=== PATIENT | male | born 1975 | race Hispanic/Latino ===

== ENCOUNTER 2018-02-13 19:38 | Inpatient (IN) | payer MEDICARE ==
[~2018-02-13] VITALS: Ht 167.6 cm; Wt 69.9 kg
[2018-02-13 20:16] LABS: BASOPHILS % (AUTO) 1.2 % (0.0-5.0); EOSINOPHILS % (AUTO) 0.3 % (0.0-8.0); HEMATOCRIT 44.4 % (42-54); LYMPHOCYTES % (AUTO) 8.8 % (21.0-51.0); MEAN CORPUSCULAR HGB CONC 33.3 g/dL (32.0-36.0); MEAN CORPUSCULAR VOLUME 96.2 fL (79-99); MONOCYTES % (AUTO) 5.2 % (3.0-13.0); NEUTROPHILS % (AUTO) 84.5 % (40.0-77.0); PLATELET COUNT (AUTO) 181 K/uL (130-400); RED BLOOD CELL COUNT(AUTO) 4.61 MIL/uL (4.50-6.20); RED CELL DISTRIBUTION WIDTH 14.4 % (11.0-15.5); WHITE BLOOD COUNT (AUTO) 10.7 K/uL (4.8-10.8)
[2018-02-13 20:18] LABS: APPEARANCE,URINE CLOUDY (CLEAR); BILIRUBIN,URINE SMALL (NEGATIVE); COLOR,URINE YELLOW (YELLOW); GLUCOSE, URINE (UA) NEGATIVE (NEGATIVE); KETONES,URINE 40 mg/dL (NEGATIVE); LEUKOCYTE ESTERASE ,URINE LARGE (NEGATIVE); NITRATE,URINE NEGATIVE (NEGATIVE); OCCULT BLOOD,URINE MODERATE (NEGATIVE); PROTEIN,URINE >=300 (NEGATIVE); UROBILINOGEN,URINE 0.2 mg/dL (0.2-1.0)
[2018-02-13] MEDS ORDERED: KETOROLAC TROMETHAMINE 15MG/ML ONE (20:20)
[2018-02-13 20:24] LABS: BACTERIA,URINE Many /HPF (None Seen); SQUAMOUS EPITHELIAL CELL,UR None Seen /HPF (0-2); WBC,URINE >100 /HPF (0-1)
[2018-02-13 20:27] LABS: CREATININE 1.7 mg/dL (0.5-1.5); POTASSIUM 3.1 mmol/L (3.5-5.1)
[2018-02-13 20:32] LABS: BILIRUBIN,TOTAL 0.8 mg/dL (0.2-1.0); TOTAL PROTEIN, SERUM 6.5 g/dL (6.0-8.3)
[2018-02-13] MEDS ORDERED: CEPHALEXIN 500 MG CAPSULE ONE (21:23)
[2018-02-14] VITALS (7 sets, daily range): BP systolic 118–146; BP diastolic 76–90
[2018-02-14] MEDS: LEVOFLOXACIN 500 MG/D5W 100 ML 100 ML IV SCH
[2018-02-14] MEDS ORDERED: ACETAMINOPHEN 325 MG TAB PO PRN
[2018-02-14] MEDS ORDERED: ONDANSETRON HCL 4 MG/2 ML VIAL IV PRN
[2018-02-14] MEDS ORDERED: SODIUM CHLORIDE 0.9% 1000ML 1,000 ML IV ONE (02:08)
[2018-02-14] MEDS ORDERED: LEVOFLOXACIN 500 MG/D5W 100 ML 100 ML ONE (02:08)
[2018-02-14] MEDS ORDERED: PHARMACY COMMUNICATION MISC SCH (05:45)
[2018-02-14] MEDS ORDERED: PNEUMOCOCCAL VACCINE POLYVALENT 0.5 ML/VIAL [PPV] IM SCH (06:00)
[2018-02-14 06:01] LABS: BASOPHILS % (AUTO) 0.9 % (0.0-5.0); EOSINOPHILS % (AUTO) 1.1 % (0.0-8.0); HEMATOCRIT 51.8 % (42-54); LYMPHOCYTES % (AUTO) 12.9 % (21.0-51.0); MEAN CORPUSCULAR HEMOGLOBIN 31.2 pg (27.0-33.0); MEAN CORPUSCULAR HGB CONC 32.3 g/dL (32.0-36.0); MEAN CORPUSCULAR VOLUME 96.4 fL (79-99); MONOCYTES % (AUTO) 7.8 % (3.0-13.0); NEUTROPHILS % (AUTO) 77.3 % (40.0-77.0); NUCLEATED RED BLOOD CELLS 0.1 % (0.0-0.19); PLATELET COUNT (AUTO) 182 K/uL (130-400); RED BLOOD CELL COUNT(AUTO) 5.38 MIL/uL (4.50-6.20); RED CELL DISTRIBUTION WIDTH 13.8 % (11.0-15.5); WHITE BLOOD COUNT (AUTO) 10.7 K/uL (4.8-10.8)
[2018-02-14 06:14] LABS: ALBUMIN 2.8 g/dL (3.5-5.0); CREATININE 1.7 mg/dL (0.5-1.5); CRP QUANTITATIVE 0.8 mg/L (0.00-9.0); POTASSIUM 3.8 mmol/L (3.5-5.1); TOTAL PROTEIN, SERUM 6.2 g/dL (6.0-8.3)
[2018-02-14] MEDS: CEPHALEXIN 500 MG CAPSULE PO SCH ×3 (06:19→15:12)
[2018-02-14] MEDS: ENOXAPARIN SODIUM 30 MG/0.3 ML SQ SCH (09:00)
[2018-02-14] MEDS: FAMOTIDINE 20MG TAB 20 MG TAB PO SCH ×2 (09:31→20:30)
[2018-02-14] MEDS: MORPHINE SULFATE 2 MG/ML 1ML SYG IV PRN ×2 (09:37→20:31)
[2018-02-14] MEDS: SODIUM CHLORIDE 0.9% 1000ML 1,000 ML IV SCH (09:38)
[2018-02-15] MEDS: LEVOFLOXACIN 500 MG/D5W 100 ML 100 ML IV SCH (00:22)
[2018-02-15] MEDS: CEPHALEXIN 500 MG CAPSULE PO SCH ×3 (00:22→18:09)
[2018-02-15 01:29] LABS: APPEARANCE,URINE Cloudy (CLEAR); BILIRUBIN,URINE Negative (NEGATIVE); COLOR,URINE Yellow (YELLOW); GLUCOSE, URINE (UA) Negative (NEGATIVE); KETONES,URINE Negative (NEGATIVE); LEUKOCYTE ESTERASE ,URINE Large (NEGATIVE); NITRATE,URINE Negative (NEGATIVE); OCCULT BLOOD,URINE Moderate (NEGATIVE); PH,URINE 6.5 (5.0-8.0); PROTEIN,URINE POS 2+ (NEGATIVE); UROBILINOGEN,URINE 0.2 mg/dL (0.2-1.0)
[2018-02-15 01:43] LABS: BACTERIA,URINE Rare /HPF (None Seen); WBC,URINE 51-100 /HPF (0-1)
[2018-02-15 01:44] LABS: SQUAMOUS EPITHELIAL CELL,UR Rare /HPF (0-2); YEAST,URINE BUDDING Moderate /HPF (None Seen)
[2018-02-15] MEDS: SODIUM CHLORIDE 0.9% 1000ML 1,000 ML IV SCH ×4 (01:52→22:59)
[2018-02-15] MEDS: MORPHINE SULFATE 2 MG/ML 1ML SYG IV PRN ×5 (01:52→22:55)
[2018-02-15 03:00] VITALS: BP 128/77
[2018-02-15 05:18] LABS: BASOPHILS % (AUTO) 1.5 % (0.0-5.0); HEMATOCRIT 50.5 % (42-54); LYMPHOCYTES % (AUTO) 16.4 % (21.0-51.0); MEAN CORPUSCULAR HEMOGLOBIN 32.2 pg (27.0-33.0); MEAN CORPUSCULAR HGB CONC 33.3 g/dL (32.0-36.0); MEAN CORPUSCULAR VOLUME 96.7 fL (79-99); MONOCYTES % (AUTO) 8.4 % (3.0-13.0); NEUTROPHILS % (AUTO) 71.7 % (40.0-77.0); PLATELET COUNT (AUTO) 193 K/uL (130-400); RED BLOOD CELL COUNT(AUTO) 5.22 MIL/uL (4.50-6.20); RED CELL DISTRIBUTION WIDTH 14.1 % (11.0-15.5); WHITE BLOOD COUNT (AUTO) 11.2 K/uL (4.8-10.8)
[2018-02-15 05:35] LABS: CREATININE 1.6 mg/dL (0.5-1.5); MAGNESIUM 1.6 mg/dL (1.80-2.40); PHOSPHORUS 3.2 mg/dL (2.5-4.9); POTASSIUM 3.4 mmol/L (3.5-5.1); URIC ACID 6.2 mg/dL (2.6-7.2)
[2018-02-15 08:00] VITALS: BP 116/74
[2018-02-15] MEDS: FAMOTIDINE 20MG TAB 20 MG TAB PO SCH ×2 (08:41→21:20)
[2018-02-15] MEDS: SODIUM BICARBONATE 650 MG TAB PO SCH ×2 (08:42→21:20)
[2018-02-15] MEDS: FOLIC ACID/VITAMIN B COMP W-C 1 MG CAPSULE PO SCH (08:42)
[2018-02-15] MEDS: ENOXAPARIN SODIUM 30 MG/0.3 ML SQ SCH (08:43)
[2018-02-15 12:00] VITALS: BP 123/81
[2018-02-15] MEDS ORDERED: FLUCONAZOLE 100 MG TAB PO SCH (12:45)
[2018-02-15 16:00] VITALS: BP 117/75
[2018-02-15 19:00] VITALS: BP 124/77
[2018-02-15 23:00] VITALS: BP 124/71
[2018-02-16] MEDS: CEPHALEXIN 500 MG CAPSULE PO SCH ×2 (00:50→08:09)
[2018-02-16] MEDS: LEVOFLOXACIN 500 MG/D5W 100 ML 100 ML IV SCH (00:50)
[2018-02-16 03:00] VITALS: BP 118/86
[2018-02-16 05:55] LABS: BASOPHILS % (AUTO) 0.9 % (0.0-5.0); EOSINOPHILS % (AUTO) 4.1 % (0.0-8.0); HEMATOCRIT 47.7 % (42-54); LYMPHOCYTES % (AUTO) 15.3 % (21.0-51.0); MEAN CORPUSCULAR HGB CONC 33.3 g/dL (32.0-36.0); MEAN CORPUSCULAR VOLUME 96.1 fL (79-99); MONOCYTES % (AUTO) 9.3 % (3.0-13.0); NEUTROPHILS % (AUTO) 70.4 % (40.0-77.0); PLATELET COUNT (AUTO) 151 K/uL (130-400); RED BLOOD CELL COUNT(AUTO) 4.97 MIL/uL (4.50-6.20); RED CELL DISTRIBUTION WIDTH 13.9 % (11.0-15.5); WHITE BLOOD COUNT (AUTO) 8.9 K/uL (4.8-10.8)
[2018-02-16 06:16] LABS: CREATININE 1.6 mg/dL (0.5-1.5); POTASSIUM 3.5 mmol/L (3.5-5.1)
[2018-02-16] MEDS: SODIUM CHLORIDE 0.9% 1000ML 1,000 ML IV SCH (06:17)
[2018-02-16] MEDS: SODIUM BICARBONATE 650 MG TAB PO SCH (08:09)
[2018-02-16] MEDS: FOLIC ACID/VITAMIN B COMP W-C 1 MG CAPSULE PO SCH (08:09)
[2018-02-16] MEDS: FAMOTIDINE 20MG TAB 20 MG TAB PO SCH (08:10)
[2018-02-16] MEDS: ENOXAPARIN SODIUM 30 MG/0.3 ML SQ SCH (08:11)
[2018-02-16] MEDS: MORPHINE SULFATE 2 MG/ML 1ML SYG IV PRN (08:23)
[2018-02-16 08:44] VITALS: BP 114/70
[2018-02-16] MEDS ORDERED: FLUCONAZOLE 100 MG TAB PO SCH (09:00)
[2018-02-16] MEDS ORDERED: CEPH500C2 PO (09:23)
[2018-02-16] MEDS ORDERED: FLUC100T8 PO (09:23)
[2018-02-16 12:00] VITALS: BP_SYST 116; BP_SYST 119; BP_DIAS 66; BP_DIAS 71
[2018-02-16] MEDS ORDERED: MAGNESIUM OXIDE 400 MG TABLET PO SCH (12:45)
== END 2018-02-16 16:30 | disposition home or self-care (01) | DRG 683 ==
LOC: EDH 19:38 → EDHIP 23:30 → OBSVTOIN 23:30 → 3BH 02-14 00:41
PROVIDERS: ADMIT Internal Medicine; ATTEND Internal Medicine
PROC: 3E02340 Introduction of Influenza Vaccine into Muscle, Percutaneous Approach (ICD-10-PCS; 2018-02-14)
PROC: 3E0234Z Introduction of Serum, Toxoid and Vaccine into Muscle, Percutaneous Approach (ICD-10-PCS; principal; 2018-02-16)
DX: N17.9 Acute kidney failure, unspecified (principal); E87.2 Acidosis; N39.0 Urinary tract infection, site not specified; N18.3 Chronic kidney disease, stage 3 (moderate); R53.81 Other malaise; N20.0 Calculus of kidney; Z87.442 Personal history of urinary calculi
CPT/HCPCS: 36415; 74176; 76770; 80048; 80053; 81001; 83605; 83735; 83970; 84100; 84550; 85025; 86140; 87040; 87088; J1650; J1885; J1956; J7030; Q2035

== ENCOUNTER 2018-04-04 12:53 | Inpatient (IN) | payer MEDICARE ==
[~2018-04-04] VITALS: Ht 167.6 cm; Wt 74.7 kg
[~2018-04-04 12:53] MED LIST: CEPH500C2 PO; FLUC100T8 PO
[2018-04-04 13:36] LABS: BILIRUBIN,URINE NEGATIVE (NEGATIVE); COLOR,URINE YELLOW (YELLOW); GLUCOSE, URINE (UA) NEGATIVE (NEGATIVE); KETONES,URINE NEGATIVE (NEGATIVE); LEUKOCYTE ESTERASE ,URINE LARGE (NEGATIVE); NITRATE,URINE NEGATIVE (NEGATIVE); OCCULT BLOOD,URINE LARGE (NEGATIVE); PH,URINE 6.5 (5.0-8.0); PROTEIN,URINE 100 (NEGATIVE); UROBILINOGEN,URINE 0.2 mg/dL (0.2-1.0)
[2018-04-04 14:02] LABS: APPEARANCE,URINE CLOUDY (CLEAR)
[2018-04-04 14:03] LABS: BACTERIA,URINE Few /HPF (None Seen); WBC,URINE 51-100 /HPF (0-1)
[2018-04-04 14:04] LABS: SQUAMOUS EPITHELIAL CELL,UR None Seen /HPF (0-2)
[2018-04-04 15:24] LABS: BASOPHILS % (AUTO) 0.8 % (0.0-5.0); EOSINOPHILS % (AUTO) 0.9 % (0.0-8.0); HEMATOCRIT 48.1 % (42-54); LYMPHOCYTES % (AUTO) 10.9 % (21.0-51.0); MEAN CORPUSCULAR HEMOGLOBIN 31.5 pg (27.0-33.0); MEAN CORPUSCULAR HGB CONC 32.7 g/dL (32.0-36.0); MEAN CORPUSCULAR VOLUME 96.3 fL (79-99); MONOCYTES % (AUTO) 6.5 % (3.0-13.0); NEUTROPHILS % (AUTO) 80.9 % (40.0-77.0); PLATELET COUNT (AUTO) 218 K/uL (130-400); RED BLOOD CELL COUNT(AUTO) 4.99 MIL/uL (4.50-6.20); RED CELL DISTRIBUTION WIDTH 14.7 % (11.0-15.5); WHITE BLOOD COUNT (AUTO) 12.5 K/uL (4.8-10.8)
[2018-04-04 15:59] LABS: CREATININE 1.8 mg/dL (0.5-1.5); POTASSIUM 3.8 mmol/L (3.5-5.1)
[2018-04-04] MEDS ORDERED: SODIUM CHLORIDE 0.9% 100 ML IV ONE (16:18)
[2018-04-04] MEDS ORDERED: CEFTRIAXONE SODIUM 1 GM ONE (16:18)
[2018-04-04] MEDS ORDERED: SODIUM CHLORIDE 0.9% 1000ML 1,000 ML IV ONE (16:54)
[2018-04-04] MEDS ORDERED: ZOSYN 3.375GM+NS 50ML 50 ML IV ONE (16:54)
[2018-04-04] MEDS ORDERED: SODIUM CHLORIDE 0.9% 50 ML IV ONE (16:55)
[2018-04-04 18:20] VITALS: BP 129/81
--- NOTE | 2018-04-04 18:40 | NUR ---
PATIENT AOX3, IN NO DISTRESS, OTHER THAN MILD LEFT FLANK PAIN. NS AT 50ML/HR. IV NO SIGNS OF INFILTRATION. NORMAL BREATHING EFFORT.
[2018-04-04] MEDS: SODIUM CHLORIDE 0.9% 1000ML 1,000 ML IV SCH (23:00)
[2018-04-04 23:15] VITALS: BP 108/71
[2018-04-04] MEDS ORDERED: ONDANSETRON HCL 4 MG/2 ML VIAL IVP PRN (23:15)
[2018-04-04] MEDS ORDERED: HYDRALAZINE HCL 20 MG/ML VIAL IM PRN (23:15)
[2018-04-04] MEDS ORDERED: MORPHINE SULFATE 2 MG/ML 1ML SYG IVP PRN (23:15)
[2018-04-04] MEDS ORDERED: ENOXAPARIN SODIUM 30 MG/0.3 ML SQ ONE (23:31)
[2018-04-04] MEDS ORDERED: KETOROLAC TROMETHAMINE 15MG/ML ONE (23:32)
[2018-04-05] MEDS: ZOSYN 3.375GM+NS 50ML 50 ML IV SCH ×3 (02:12→17:07)
[2018-04-05 03:50] VITALS: BP 103/60
[2018-04-05 05:33] LABS: HEMATOCRIT 46.1 % (42-54); MEAN CORPUSCULAR HEMOGLOBIN 32.2 pg (27.0-33.0); MEAN CORPUSCULAR HGB CONC 33.8 g/dL (32.0-36.0); MEAN CORPUSCULAR VOLUME 95.3 fL (79-99); PLATELET COUNT (AUTO) 240 K/uL (130-400); RED BLOOD CELL COUNT(AUTO) 4.84 MIL/uL (4.50-6.20); RED CELL DISTRIBUTION WIDTH 14.9 % (11.0-15.5); WHITE BLOOD COUNT (AUTO) 8.5 K/uL (4.8-10.8)
[2018-04-05 05:44] LABS: CREATININE 1.9 mg/dL (0.5-1.5); POTASSIUM 3.5 mmol/L (3.5-5.1)
[2018-04-05 08:00] VITALS: BP 114/66
[2018-04-05] MEDS: PANTOPRAZOLE 40 MG/VIAL IVP SCH (10:06)
[2018-04-05] MEDS: ENOXAPARIN SODIUM 30 MG/0.3 ML SQ SCH (10:06)
[2018-04-05] MEDS: KETOROLAC TROMETHAMINE 15MG/ML IV PRN ×3 (10:07→23:52)
[2018-04-05 12:00] VITALS: BP 107/60
[2018-04-05] MEDS ORDERED: PHARMACY COMMUNICATION MISC SCH (12:30)
[2018-04-05] MEDS ORDERED: ACETAMINOPHEN 325 MG TAB PO PRN (12:30)
[2018-04-05] MEDS ORDERED: HYDROCODONE/ACETAMINOPHEN 5/325 MG TAB PO PRN (12:30)
--- NOTE | 2018-04-05 14:46 | NUR ---
DCP CM met with pt discussed dc plans. Pt is independent prior to admission, lives at home with mother and son. Has a wheelchair, walker, and shower chair. Denies any other equiopments/services. Pt feels safe to go back home, still drives, mother and son able to assist with transportation and needs as necessary. DC plan to home once stable. CM to cont to follow up. Addendum: 04/05/18 at 1447 by DAVE TUTTLE LVN CM Amended: Links added.
[2018-04-05] MEDS: SODIUM CHLORIDE 0.9% 1000ML 1,000 ML IV SCH ×2 (15:05→21:51)
[2018-04-05 16:00] VITALS: BP 127/73
[2018-04-05 19:52] VITALS: BP 110/71
[2018-04-05 23:56] VITALS: BP 121/75
[2018-04-06] MEDS: ZOSYN 3.375GM+NS 50ML 50 ML IV SCH ×2 (01:34→08:52)
[2018-04-06 03:46] VITALS: BP 113/72
[2018-04-06] MEDS: KETOROLAC TROMETHAMINE 15MG/ML IV PRN (06:30)
[2018-04-06] MEDS: SODIUM CHLORIDE 0.9% 1000ML 1,000 ML IV SCH (06:31)
[2018-04-06 08:11] VITALS: BP 116/62
[2018-04-06] MEDS: ENOXAPARIN SODIUM 30 MG/0.3 ML SQ SCH (08:54)
[2018-04-06] MEDS: PANTOPRAZOLE 40 MG/VIAL IVP SCH (09:00)
[2018-04-07] MEDS ORDERED: PANTOPRAZOLE SODIUM 40 MG TABLET.DR PO SCH (07:30)
== END 2018-04-06 13:10 | disposition home or self-care (01) | DRG 690 ==
LOC: EDH 12:53 → OBSVTOIN 16:33 → EDHIP 16:33 → 3CH 18:31
PROVIDERS: ADMIT Internal Medicine; ATTEND Internal Medicine
DX: N13.6 Pyonephrosis (principal); N17.9 Acute kidney failure, unspecified; Z91.19 Patient's noncompliance with other medical treatment and regimen
CPT/HCPCS: 36415; 74176; 80048; 81001; 85025; 85027; 87088; C9113; G0378; J0696; J1650; J1885; J2405; J2543; J7030

== ENCOUNTER 2018-06-30 03:40 | Emergency (ER) | payer MEDICARE ==
[2018-06-30] MEDS ORDERED: PREDNISONE 20 MG TABLET ONE (04:18)
== END 2018-06-30 06:15 | disposition home or self-care (01) ==
LOC: EDH 03:40
DX: T63.441A Toxic effect of venom of bees, accidental (unintentional), initial encounter (principal); Z87.442 Personal history of urinary calculi; Z72.0 Tobacco use; Z88.8 Allergy status to other drugs, medicaments and biological substances; Z98.890 Other specified postprocedural states; Y92.89 Other specified places as the place of occurrence of the external cause

== ENCOUNTER 2018-10-17 17:46 | Inpatient (IN) | payer MEDICARE ==
[~2018-10-17] VITALS: Ht 167.6 cm; Wt 80.9 kg
[2018-10-17] MEDS ORDERED: KETOROLAC TROMETHAMINE 15MG/ML ONE (18:34)
[2018-10-17 18:48] LABS: APPEARANCE,URINE CLOUDY (CLEAR); BILIRUBIN,URINE NEGATIVE (NEGATIVE); COLOR,URINE YELLOW (YELLOW); GLUCOSE, URINE (UA) NEGATIVE (NEGATIVE); KETONES,URINE NEGATIVE (NEGATIVE); LEUKOCYTE ESTERASE ,URINE LARGE (NEGATIVE); NITRATE,URINE NEGATIVE (NEGATIVE); OCCULT BLOOD,URINE LARGE (NEGATIVE); PROTEIN,URINE >=300 mg/dL (NEGATIVE); UROBILINOGEN,URINE 0.2 mg/dL (0.2-1.0)
[2018-10-17 18:50] LABS: BASOPHILS % (AUTO) 0.8 % (0.0-5.0); EOSINOPHILS % (AUTO) 2.4 % (0.0-8.0); HEMATOCRIT 44.1 % (42-54); LYMPHOCYTES % (AUTO) 12.7 % (21.0-51.0); MEAN CORPUSCULAR HEMOGLOBIN 32.2 pg (27.0-33.0); MEAN CORPUSCULAR HGB CONC 33.3 g/dL (32.0-36.0); MEAN CORPUSCULAR VOLUME 96.6 fL (79-99); MONOCYTES % (AUTO) 9.9 % (3.0-13.0); NEUTROPHILS % (AUTO) 74.2 % (40.0-77.0); PLATELET COUNT (AUTO) 255 K/uL (130-400); RED BLOOD CELL COUNT(AUTO) 4.57 MIL/uL (4.50-6.20); RED CELL DISTRIBUTION WIDTH 14.8 % (11.0-15.5); WHITE BLOOD COUNT (AUTO) 12.6 K/uL (4.8-10.8)
[2018-10-17 18:54] LABS: BACTERIA,URINE Many /HPF (None Seen); RBC,URINE None Seen /HPF (0-1); SQUAMOUS EPITHELIAL CELL,UR None Seen /HPF (0-2); WBC,URINE Full Field /HPF (0-1)
[2018-10-17 19:00] LABS: AMPHET/METH SCREEN,URINE NEGATIVE (NEGATIVE); BARBITURATE SCREEN, URINE NEGATIVE (NEGATIVE); BENZODIAZEPINES SCREEN,URINE NEGATIVE (NEGATIVE); CANNABINOID SCREEN,URINE NEGATIVE (NEGATIVE); COCAINE SCREEN,URINE POSITIVE (NEGATIVE); OPIATE SCREEN,URINE NEGATIVE (NEGATIVE); PHENCYCLIDINE SCREEN,URINE NEGATIVE (NEGATIVE)
[2018-10-17 19:00] LABS: CREATININE 2.6 mg/dL (0.5-1.5); POTASSIUM 3.4 mmol/L (3.5-5.1)
[2018-10-17 19:06] LABS: ALBUMIN 2.9 g/dL (3.5-5.0); BILIRUBIN,TOTAL 0.3 mg/dL (0.2-1.0); TOTAL PROTEIN, SERUM 7.1 g/dL (6.0-8.3)
[2018-10-17] MEDS ORDERED: CEFTRIAXONE SODIUM 2 GM VIAL ONE (19:25)
[2018-10-17] MEDS ORDERED: SODIUM CHLORIDE 0.9% 50 ML IV ONE (19:25)
[2018-10-17] MEDS ORDERED: SODIUM CHLORIDE 0.9% 1000ML 1,000 ML IV ONE ×2 (19:36→21:19)
[2018-10-17] MEDS: SODIUM CHLORIDE 0.9% 1000ML 1,000 ML IV SCH (21:09)
[2018-10-17] MEDS ORDERED: ACETAMINOPHEN 325 MG TAB PO PRN ×2 (21:15)
[2018-10-17] MEDS ORDERED: ONDANSETRON HCL 4 MG/2 ML VIAL IV PRN (21:15)
[2018-10-17] MEDS: CEFTRIAXONE SODIUM 1 GM IV SCH (22:00)
--- NOTE | 2018-10-17 23:00 | NUR ---
Admission Assessment Received pt from ED per wheelchair with no family around, NS at 125cc/hr infusing well, routine admission assessment done, plan of care discuss so with all lab works & radiologic study done in Ed. Per pt claimed he is aware that he has multiple kidney stones since claimed he left a [place], drove 6 hours & came to the hospital since his family support is here in the [place]. Stated if he will need surgery he prefers to have it here. I made him aware that he is still pending to be seen by Dr. Winchester & most possibly will be needing some surgical intervention. Pt c/o at this time bilateral flank pain scale 9/10, to be medicated with Morphine.
[2018-10-17] MEDS: MORPHINE SULFATE 4 MG/1ML SYG IV PRN (23:10)
[2018-10-18 00:38] VITALS: BP 135/78
[2018-10-18] MEDS ORDERED: sulfameth PO (03:47)
[2018-10-18 04:01] VITALS: BP 101/60
[2018-10-18] MEDS: SODIUM CHLORIDE 0.9% 1000ML 1,000 ML IV SCH ×2 (05:18→13:20)
[2018-10-18 08:00] VITALS: BP 110/67
[2018-10-18] MEDS: MORPHINE SULFATE 4 MG/1ML SYG IV PRN (08:20)
[2018-10-18] MEDS ORDERED: FAMOTIDINE/PF 20 MG/2 ML VIAL IV SCH (09:00)
[2018-10-18] MEDS ORDERED: ENOXAPARIN SODIUM 30 MG/0.3 ML SQ SCH (09:00)
[2018-10-18 11:00] VITALS: BP 111/76
[2018-10-18] MEDS ORDERED: POTASSIUM CHLORIDE 20 MEQ ERTAB PO SCH (12:45)
[2018-10-18] MEDS: HYDROCODONE/ACETAMINOPHEN 5/325 MG TAB PO PRN ×2 (13:20→21:48)
[2018-10-18 16:00] VITALS: BP 112/75
--- NOTE | 2018-10-18 16:33 | NUR ---
UROLOGY CONSULT Called answering service for Dr. Winchester for consult. Pending for him to call back.
--- NOTE | 2018-10-18 18:27 | NUR ---
cm note resides at home with mother , pt is independent with ambulation and adls. no dme. states dc plan is back to home. states no dc needs. but did request info on provider services and transportation services , did provide medicaid trasnport info and #s, and also on provider services phone #s to call and request services. also discussed with pt importance of adherence to diet and med regimen as prescribed by md, and also abstaining from alcohol and drug use, due to illness, and available resources for alcohol and drug resources, pt denies any drugs or alcahol use.dc plan is back home with mother. Addendum: 10/18/18 at 1833 by QI LOCKE Amended: Links added.
[2018-10-18] MEDS ORDERED: AMLO5TAB9 PO (19:18)
[2018-10-18] MEDS ORDERED: TRAZ-185 PO (19:18)
[2018-10-18] MEDS ORDERED: LEVO500T89 PO (19:18)
[2018-10-18] MEDS ORDERED: LISI2.5T2 PO (19:18)
[2018-10-18] MEDS ORDERED: ACET1TAB25 PO (19:18)
[2018-10-18] MEDS ORDERED: CARV12.511 PO (19:18)
[2018-10-18] MEDS ORDERED: ESOM40CA54 PO (19:18)
--- NOTE | 2018-10-18 19:45 | NUR ---
PN Assessment Received pt alone, with NS at 100cc/hr infusing well, routine assessment done, plan of care discuss, confirmed awareness of surgical intervention in AM by Dr. Winchester, reminded NPO post MN & agreed to take a shower before bedtime. Pt stated that this is not the 1st time he will have a stent place on him.
[2018-10-18 20:00] VITALS: BP 133/77
--- NOTE | 2018-10-18 20:17 | NUR ---
PROCEDURE Obtained consent as ordered by Dr. Winchester and filed in chart.
--- NOTE | 2018-10-18 20:47 | NUR ---
HOME MEDICATIONS Entered home medications by error. Medications entered do not belong to this patient and have been discontinued from Medication Reconciliation Screen.
--- NOTE | 2018-10-18 20:57 | NUR ---
REVERSAL OF DNR REQUEST Patient stated he does not want to be DNR anymore. He stated this right before he signed consent for his urological procedure by Dr. Winchester tomorrow.
[2018-10-18] MEDS: CEFTRIAXONE SODIUM 1 GM IV SCH (21:38)
[2018-10-19] VITALS (25 sets, daily range): BP systolic 106–149; BP diastolic 64–99
[2018-10-19 04:15] LABS: BASOPHILS % (AUTO) 0.7 % (0.0-5.0); EOSINOPHILS % (AUTO) 7.8 % (0.0-8.0); HEMATOCRIT 43.9 % (42-54); LYMPHOCYTES % (AUTO) 12.2 % (21.0-51.0); MEAN CORPUSCULAR HEMOGLOBIN 31.5 pg (27.0-33.0); MEAN CORPUSCULAR HGB CONC 32.5 g/dL (32.0-36.0); MEAN CORPUSCULAR VOLUME 96.7 fL (79-99); MONOCYTES % (AUTO) 7.8 % (3.0-13.0); NEUTROPHILS % (AUTO) 71.5 % (40.0-77.0); PLATELET COUNT (AUTO) 247 K/uL (130-400); RED BLOOD CELL COUNT(AUTO) 4.54 MIL/uL (4.50-6.20); RED CELL DISTRIBUTION WIDTH 14.9 % (11.0-15.5); WHITE BLOOD COUNT (AUTO) 13.3 K/uL (4.8-10.8)
[2018-10-19 04:37] LABS: CREATININE 2.2 mg/dL (0.5-1.5); POTASSIUM 4.3 mmol/L (3.5-5.1)
[2018-10-19] MEDS: SODIUM CHLORIDE 0.9% 1000ML 1,000 ML IV SCH ×2 (06:33→17:37)
[2018-10-19] MEDS ORDERED: IOHEXOL-350 50ML VIAL IV ONE (08:27)
[2018-10-19] MEDS ORDERED: LIDOCAINE HCL MPF 1% 5ML VIAL ONE (08:46)
[2018-10-19] MEDS ORDERED: FENTANYL CITRATE PF 50 MCG/1 ML 2ML VIAL ONE ×2 (08:47→09:16)
[2018-10-19] MEDS ORDERED: PROPOFOL 10 MG/ML 20ML VIAL IV ONE (08:47)
[2018-10-19] MEDS ORDERED: ENOXAPARIN SODIUM 30 MG/0.3 ML SQ SCH (09:00)
[2018-10-19] MEDS: FAMOTIDINE/PF 20 MG/2 ML VIAL IV SCH (09:00)
[2018-10-19] MEDS ORDERED: EPHEDRINE SULFATE 50 MG/ML AMPULE ONE (09:12)
[2018-10-19] MEDS: MORPHINE SULFATE 2 MG/ML 1ML SYG IV PRN ×2 (17:37→22:34)
--- NOTE | 2018-10-19 20:04 | NUR ---
FEVER Vinayak DIAZ notified of temp 101.8.
[2018-10-19] MEDS ORDERED: PHARMACY COMMUNICATION MISC SCH (22:00)
[2018-10-19] MEDS: CEFTRIAXONE SODIUM 1 GM IV SCH (22:28)
[2018-10-19] MEDS ORDERED: SULF1TAB3 PO (22:30)
[2018-10-20] VITALS (7 sets, daily range): BP systolic 103–151; BP diastolic 53–97
[2018-10-20] MEDS: SODIUM CHLORIDE 0.9% 1000ML 1,000 ML IV SCH ×3 (02:47→21:28)
[2018-10-20] MEDS: MORPHINE SULFATE 2 MG/ML 1ML SYG IV PRN ×4 (04:15→20:45)
[2018-10-20 05:56] LABS: BASOPHILS % (AUTO) 0.2 % (0.0-5.0); EOSINOPHILS % (AUTO) 0.1 % (0.0-8.0); HEMATOCRIT 43.9 % (42-54); LYMPHOCYTES % (AUTO) 3.8 % (21.0-51.0); MEAN CORPUSCULAR HEMOGLOBIN 31.9 pg (27.0-33.0); MEAN CORPUSCULAR HGB CONC 33.3 g/dL (32.0-36.0); MEAN CORPUSCULAR VOLUME 95.7 fL (79-99); MONOCYTES % (AUTO) 6.9 % (3.0-13.0); PLATELET COUNT (AUTO) 213 K/uL (130-400); RED BLOOD CELL COUNT(AUTO) 4.58 MIL/uL (4.50-6.20); RED CELL DISTRIBUTION WIDTH 14.4 % (11.0-15.5)
[2018-10-20 06:02] LABS: CREATININE 1.9 mg/dL (0.5-1.5); POTASSIUM 3.6 mmol/L (3.5-5.1)
--- NOTE | 2018-10-20 06:10 | NUR ---
URINE Pt voiding dark salma urine,no hematuria noted this time.
[2018-10-20] MEDS: FAMOTIDINE/PF 20 MG/2 ML VIAL IV SCH (09:01)
[2018-10-20] MEDS: LEVOFLOXACIN 250 MG/D5W 50ML 50 ML IV SCH (09:01)
[2018-10-20] MEDS: CEFTRIAXONE SODIUM 1 GM IV SCH (20:45)
--- NOTE | 2018-10-20 20:51 | NUR ---
LYDIA molina np updated on pt.s status.Informed pt wants to leave in am at 10 am.
[2018-10-21 03:40] VITALS: BP 139/84
[2018-10-21] MEDS: MORPHINE SULFATE 2 MG/ML 1ML SYG IV PRN ×2 (03:48→22:24)
[2018-10-21] MEDS: SODIUM CHLORIDE 0.9% 1000ML 1,000 ML IV SCH (03:48)
[2018-10-21 08:00] VITALS: BP 107/60
[2018-10-21] MEDS: LEVOFLOXACIN 250 MG/D5W 50ML 50 ML IV SCH (10:43)
[2018-10-21] MEDS: FAMOTIDINE/PF 20 MG/2 ML VIAL IV SCH (10:43)
[2018-10-21 11:49] VITALS: BP 119/71
[2018-10-21] MEDS: HYDROCODONE/ACETAMINOPHEN 5/325 MG TAB PO PRN (13:07)
[2018-10-21 16:00] VITALS: BP_SYST 117; BP_SYST 140; BP_DIAS 60; BP_DIAS 75
[2018-10-21 19:30] VITALS: BP 125/73
[2018-10-21] MEDS: CEFTRIAXONE SODIUM 1 GM IV SCH (22:08)
[2018-10-21 23:30] VITALS: BP 129/76
[2018-10-22] MEDS: MORPHINE SULFATE 2 MG/ML 1ML SYG IV PRN (02:09)
[2018-10-22 03:30] VITALS: BP 108/56
[2018-10-22 05:26] LABS: BASOPHILS % (AUTO) 0.9 % (0.0-5.0); EOSINOPHILS % (AUTO) 6.2 % (0.0-8.0); HEMATOCRIT 43.9 % (42-54); LYMPHOCYTES % (AUTO) 19.1 % (21.0-51.0); MEAN CORPUSCULAR HEMOGLOBIN 31.9 pg (27.0-33.0); MEAN CORPUSCULAR HGB CONC 33.3 g/dL (32.0-36.0); MEAN CORPUSCULAR VOLUME 95.9 fL (79-99); MONOCYTES % (AUTO) 14.9 % (3.0-13.0); NEUTROPHILS % (AUTO) 58.9 % (40.0-77.0); NUCLEATED RED BLOOD CELLS 0.1 % (0.0-0.19); PLATELET COUNT (AUTO) 204 K/uL (130-400); RED BLOOD CELL COUNT(AUTO) 4.57 MIL/uL (4.50-6.20); RED CELL DISTRIBUTION WIDTH 14.4 % (11.0-15.5); WHITE BLOOD COUNT (AUTO) 8.2 K/uL (4.8-10.8)
[2018-10-22 05:45] LABS: CREATININE 1.8 mg/dL (0.5-1.5); POTASSIUM 3.3 mmol/L (3.5-5.1)
[2018-10-22 08:00] VITALS: BP 115/57
[2018-10-22] MEDS: SODIUM CHLORIDE 0.9% 1000ML 1,000 ML IV SCH (08:44)
[2018-10-22] MEDS: FAMOTIDINE/PF 20 MG/2 ML VIAL IV SCH (08:44)
[2018-10-22] MEDS: LEVOFLOXACIN 250 MG/D5W 50ML 50 ML IV SCH (08:44)
[2018-10-22] MEDS: HYDROCODONE/ACETAMINOPHEN 5/325 MG TAB PO PRN ×2 (08:47→14:39)
[2018-10-22 11:00] VITALS: BP 102/66
[2018-10-22 16:00] VITALS: BP 115/63
[2018-10-22 20:00] VITALS: BP 112/67
== END 2018-10-22 22:50 | disposition home or self-care (01) | DRG 659 ==
LOC: EDH 17:46 → EDHIP 20:10 → 3DH 22:23
PROVIDERS: ADMIT Hospitalist; ATTEND Hospitalist
PROC: 0TC78ZZ Extirpation of Matter from Left Ureter, Via Natural or Artificial Opening Endoscopic (ICD-10-PCS; principal; 2018-10-19 09:10)
PROC: 0T778DZ Dilation of Left Ureter with Intraluminal Device, Via Natural or Artificial Opening Endoscopic (ICD-10-PCS; 2018-10-19 09:10)
PROC: BT171ZZ Fluoroscopy of Left Ureter using Low Osmolar Contrast (ICD-10-PCS; 2018-10-19 09:10)
DX: N13.6 Pyonephrosis (principal); R65.11 Systemic inflammatory response syndrome (SIRS) of non-infectious origin with acute organ dysfunction; N17.9 Acute kidney failure, unspecified; N30.20 Other chronic cystitis without hematuria; E11.22 Type 2 diabetes mellitus with diabetic chronic kidney disease; F17.210 Nicotine dependence, cigarettes, uncomplicated; K21.9 Gastro-esophageal reflux disease without esophagitis; K43.9 Ventral hernia without obstruction or gangrene; N18.9 Chronic kidney disease, unspecified; N28.1 Cyst of kidney, acquired; Z87.442 Personal history of urinary calculi; Z93.3 Colostomy status; Z83.3 Family history of diabetes mellitus; Z82.5 Family history of asthma and other chronic lower respiratory diseases; Z80.0 Family history of malignant neoplasm of digestive organs
CPT/HCPCS: 36415; 74176; 74420; 80048; 80053; 80305; 81001; 83690; 85025; 87088; A4354; C1758; C1769; C2617; G0378; J0696; J1650; J1885; J1956; J2270; J2704; J3010; J3490; J7030; J7120; Q9967

== ENCOUNTER 2018-12-21 18:26 | Inpatient (IN) | payer MEDICARE ==
[~2018-12-21] VITALS: Ht 167.6 cm; Wt 76.2 kg
[~2018-12-21 18:26] MED LIST changes: -CEPH500C2 PO; -FLUC100T8 PO; +SULF1TAB3 PO
[2018-12-21 19:38] LABS: BASOPHILS % (AUTO) 1.4 % (0.0-5.0); EOSINOPHILS % (AUTO) 5.6 % (0.0-8.0); HEMATOCRIT 47.5 % (42-54); LYMPHOCYTES % (AUTO) 16.9 % (21.0-51.0); MEAN CORPUSCULAR HEMOGLOBIN 32.4 pg (27.0-33.0); MEAN CORPUSCULAR HGB CONC 33.8 g/dL (32.0-36.0); MEAN CORPUSCULAR VOLUME 95.9 fL (79-99); NEUTROPHILS % (AUTO) 69.1 % (40.0-77.0); PLATELET COUNT (AUTO) 241 K/uL (130-400); RED BLOOD CELL COUNT(AUTO) 4.95 MIL/uL (4.50-6.20); RED CELL DISTRIBUTION WIDTH 14.5 % (11.0-15.5); WHITE BLOOD COUNT (AUTO) 11.1 K/uL (4.8-10.8)
[2018-12-21 19:39] LABS: BILIRUBIN,URINE Negative (NEGATIVE); COLOR,URINE Yellow (YELLOW); GLUCOSE, URINE (UA) Negative (NEGATIVE); KETONES,URINE Negative (NEGATIVE); LEUKOCYTE ESTERASE ,URINE Large (NEGATIVE); NITRATE,URINE Negative (NEGATIVE); OCCULT BLOOD,URINE Large (NEGATIVE); PROTEIN,URINE 300 mg/dL (NEGATIVE); UROBILINOGEN,URINE 0.2 mg/dL (0.2-1.0)
[2018-12-21 19:42] LABS: APPEARANCE,URINE CLOUDY (CLEAR); CREATININE 2.1 mg/dL (0.5-1.5)
[2018-12-21 19:46] LABS: ALBUMIN 3.1 g/dL (3.5-5.0); BILIRUBIN,DIRECT 0.1 mg/dL (0.0-0.3); BILIRUBIN,TOTAL 0.2 mg/dL (0.2-1.0); TOTAL PROTEIN, SERUM 6.9 g/dL (6.0-8.3)
[2018-12-21 19:48] LABS: POTASSIUM 3.4 mmol/L (3.5-5.1)
[2018-12-21 19:53] LABS: BACTERIA,URINE Few /HPF (None Seen); WBC,URINE >100 /HPF (0-1)
[2018-12-21] MEDS ORDERED: SODIUM CHLORIDE 0.9% 1000ML 1,000 ML IV ONE (20:08)
[2018-12-21] MEDS ORDERED: CEFTRIAXONE SODIUM 1 GM ONE (20:08)
[2018-12-21] MEDS ORDERED: MORPHINE SULFATE 2 MG/ML 1ML SYG ONE (20:19)
[2018-12-21] MEDS: SODIUM CHLORIDE 0.9% 1000ML 1,000 ML IV SCH (20:26)
[2018-12-21] MEDS ORDERED: POTASSIUM CHLORIDE 20MEQ/100ML 100 ML IV PRN (20:45)
[2018-12-21] MEDS: CEFTRIAXONE SODIUM 1 GM IVP SCH (20:45)
[2018-12-21] MEDS ORDERED: LIDOCAINE HCL-MPF 1% 2ML VIAL IV PRN (20:45)
[2018-12-21] MEDS ORDERED: MORPHINE SULFATE 2 MG/ML 1ML SYG IVP PRN (20:45)
[2018-12-21] MEDS ORDERED: POTASSIUM CHLORIDE 10% ELIXIR 20 MEQ/15 ML UDCUP PO PRN (20:45)
[2018-12-21] MEDS ORDERED: POTASSIUM CHLORIDE 20 MEQ ERTAB PO PRN (20:45)
[2018-12-21] MEDS ORDERED: FAMOTIDINE/PF 20 MG/2 ML VIAL IV SCH (21:00)
[2018-12-21] MEDS ORDERED: FAMOTIDINE/PF 20 MG/2 ML VIAL IV ONE (21:08)
[2018-12-21 21:44] VITALS: BP 140/93
[2018-12-22] VITALS (26 sets, daily range): BP systolic 77–134; BP diastolic 41–106
[2018-12-22 06:19] LABS: BASOPHILS % (AUTO) 0.7 % (0.0-5.0); EOSINOPHILS % (AUTO) 6.7 % (0.0-8.0); HEMATOCRIT 48.4 % (42-54); LYMPHOCYTES % (AUTO) 15.4 % (21.0-51.0); MEAN CORPUSCULAR HEMOGLOBIN 32.2 pg (27.0-33.0); MEAN CORPUSCULAR HGB CONC 33.1 g/dL (32.0-36.0); MEAN CORPUSCULAR VOLUME 97.1 fL (79-99); NEUTROPHILS % (AUTO) 70.2 % (40.0-77.0); NUCLEATED RED BLOOD CELLS 0.2 % (0.0-0.19); PLATELET COUNT (AUTO) 227 K/uL (130-400); RED BLOOD CELL COUNT(AUTO) 4.99 MIL/uL (4.50-6.20); RED CELL DISTRIBUTION WIDTH 14.5 % (11.0-15.5); WHITE BLOOD COUNT (AUTO) 10.2 K/uL (4.8-10.8)
[2018-12-22] MEDS: SODIUM CHLORIDE 0.9% 1000ML 1,000 ML IV SCH ×3 (06:26→20:05)
[2018-12-22 06:34] LABS: ALBUMIN 2.9 g/dL (3.5-5.0); BILIRUBIN,TOTAL 0.3 mg/dL (0.2-1.0); CREATININE 1.8 mg/dL (0.5-1.5); MAGNESIUM 1.8 mg/dL (1.80-2.40); TOTAL PROTEIN, SERUM 6.6 g/dL (6.0-8.3)
[2018-12-22 07:10] LABS: POTASSIUM 3.7 mmol/L (3.5-5.1)
[2018-12-22] MEDS: FAMOTIDINE/PF 20 MG/2 ML VIAL IV SCH (09:28)
[2018-12-22] MEDS: LEVOFLOXACIN 500 MG/D5W 100 ML 100 ML IV SCH (09:28)
[2018-12-22] MEDS: CEFTRIAXONE SODIUM 1 GM IVP SCH ×2 (09:28→20:47)
--- NOTE | 2018-12-22 10:13 | NUR ---
DR. FARZAD ANG, PENDING CALL BACK
--- NOTE | 2018-12-22 11:35 | NUR ---
Dr. Winchester paged the second time, pending call back.
--- NOTE | 2018-12-22 12:22 | NUR ---
Dr. Arellnao called back Dr. arellano called back and ordered CT of the abdomen and pelvis without contract. Procedure pending.
--- NOTE | 2018-12-22 13:50 | NUR ---
DCP CM met with pt discussed dc plans. Pt is independent prior to admission, lives at home with mother. Denies any equipments/services. Feels safe to go back home, mother able to assist with transprotation and needs as necessary. DC plan to home once stable. CM to cont to follow up. Addendum: 12/22/18 at 1351 by DAVE TUTTLE LVN CM Amended: Links added.
--- NOTE | 2018-12-22 17:46 | NUR ---
DR. PANDA ORDER FOR PROCEDURE Dr. Panda order to obtained consent for Left Ureteroscopy with Laser Lithotripsy, and Left Ureteral Stent Placement for tonight, OR called and notified, OR stated the procedure will be scheduled at approximately 1900, called back and relayed the information from OR. in agreement with time, pt notified and consent for procedure obtained. Nursing will continue to follow up. Pt currently NPO.
[2018-12-22] MEDS ORDERED: MIDAZOLAM HCL 1 MG/ML 2ML VIAL ONE (17:53)
[2018-12-22] MEDS ORDERED: SUCCINYLCHOLINE 200MG/10ML SYR ONE (17:53)
[2018-12-22] MEDS ORDERED: DEXAMETHASONE SOD PHOSPHATE 10MG/ML 1ML VIAL ONE (17:53)
[2018-12-22] MEDS ORDERED: GLYCOPYRROLATE 1 MG/5 ML SYRINGE ONE (17:53)
[2018-12-22] MEDS ORDERED: ONDANSETRON HCL 4 MG/2 ML VIAL ONE (17:53)
[2018-12-22] MEDS ORDERED: LIDOCAINE PF 2% 5ML ABBOJECT ONE (17:53)
[2018-12-22] MEDS ORDERED: FENTANYL CITRATE PF 50 MCG/1 ML 2ML VIAL ONE (17:54)
[2018-12-22] MEDS ORDERED: NEOSTIGMINE 5MG/5ML SYR IV ONE (17:54)
[2018-12-22] MEDS ORDERED: PROPOFOL 10 MG/ML 20ML VIAL IV ONE (17:54)
[2018-12-22] MEDS ORDERED: ROCURONIUM 10MG/1ML SYR 10 MG/ML ML ONE (17:54)
[2018-12-22] MEDS: HYDROMORPHONE 1 MG/1 ML AMP IVP PRN (17:56)
[2018-12-22] MEDS ORDERED: IOHEXOL-350 50ML VIAL IV ONE (19:21)
[2018-12-22] MEDS ORDERED: MEPERIDINE-PF 25 MG/ML SYG ONE ×2 (20:22→20:32)
--- NOTE | 2018-12-22 21:15 | NUR ---
Came back from procedure ( Left ureteroscopy with laser lithotripsy and left ureteral stent). Pt alert and responsive. To check VS per protocol and observed for any unsualities. No apparent distress noted.
[2018-12-23] VITALS: BP_SYST 107; BP_SYST 116; BP_DIAS 71; BP_DIAS 72
[2018-12-23] MEDS: HYDROMORPHONE 1 MG/1 ML AMP IVP PRN ×2 (00:34→05:05)
[2018-12-23 01:13] VITALS: BP 103/68
[2018-12-23] MEDS: SODIUM CHLORIDE 0.9% 1000ML 1,000 ML IV SCH ×2 (02:57→12:26)
[2018-12-23 04:28] VITALS: BP 104/69
[2018-12-23 05:13] LABS: HEMATOCRIT 47.1 % (42-54); MEAN CORPUSCULAR HEMOGLOBIN 32.1 pg (27.0-33.0); MEAN CORPUSCULAR HGB CONC 32.8 g/dL (32.0-36.0); MEAN CORPUSCULAR VOLUME 97.8 fL (79-99); PLATELET COUNT (AUTO) 235 K/uL (130-400); RED BLOOD CELL COUNT(AUTO) 4.81 MIL/uL (4.50-6.20); RED CELL DISTRIBUTION WIDTH 14.3 % (11.0-15.5); WHITE BLOOD COUNT (AUTO) 11.4 K/uL (4.8-10.8)
[2018-12-23 05:47] LABS: POTASSIUM 4.4 mmol/L (3.5-5.1)
[2018-12-23 07:30] VITALS: BP 103/65
[2018-12-23 07:51] LABS: BAND NEUTROPHILS % (MANUAL) 2 % (0-2); BASOPHILS % (MANUAL) 1 % (0-2); LYMPHOCYTES % (MANUAL) 4 % (22-44); MONOCYTES % (MANUAL) 3 % (2-9); REACTIVE LYMPHOCYTES 2 % (0-0); SEGMENTED NEUTROPHILS % 88 % (40-70)
[2018-12-23 07:52] LABS: MAN.DIFF COMMENT-IMPRESSION MANUAL DIFFERENTIAL; PLATELET MORPHOLOGY COMMENT ADEQUATE
[2018-12-23] MEDS: CEFTRIAXONE SODIUM 1 GM IVP SCH (08:45)
[2018-12-23] MEDS ORDERED: FLUCONAZOLE 200 MG/NS 100 ML 100 ML IV SCH (09:00)
[2018-12-23] MEDS: LEVOFLOXACIN 500 MG/D5W 100 ML 100 ML IV SCH (09:00)
[2018-12-23] MEDS: FAMOTIDINE/PF 20 MG/2 ML VIAL IV SCH (09:26)
[2018-12-23 11:00] VITALS: BP 114/74
--- NOTE | 2018-12-23 11:30 | NUR ---
note RECEIVED REPORT FROM ALBERT AND TAKING OVER THIS PATIENT CARE. HE CAME IN WITH LEFT HYDRONEPHROSIS AND WITH URETERAL STONE. HE UNDERWENT LITHOTRIPSY YESTERDAY REMOVED A KIDNEY STONE AND HAD URETERAL STENT PLACED BY DR PANDA. POSSIBLE DISCHARGE TODAY TO FOLLOW UP OUTPATIENT FOR REMOVAL OF STENT. HE IS STABLE. NO COMPLAINS OF PAIN OR DISCOMFORT AT THIS TIME.
--- NOTE | 2018-12-23 15:05 | NUR ---
RD NOTIFICATION DX: LEFT SIDED PYELONEPHRITIS. HX: KIDNEY STONES, HERNIA. DIET: CLEAR LIQUIDS. SKIN INTACT, NO EDEMA. LBM: 12/21 PER PT. PO INTAKE 100% AND HAS GOOD APPETITE- SEEMS TO BE IMPROVING, PER PT. NO NAUSEA, VOMITING OR DIARRHEA NOTED. PT WAS WEIGHING 210# ONE YEAR AGO- HAS NOTICED WEIGHT LOSS. WEIGHT LOSS % NOT SIGNIFICANT [id number]. MILD FAT LOSS NOTED. RD RECOMMENDS TO CONTINUE CURRENT DIET. ADVANCE DIET TOLERATED WHEN MEDICALLY FEASIBLE. ADVANCE TO RENAL NON-DIALYSIS, LOW OXALATE DIET. RD WILL CONTINUE TO MONITOR AND FOLLOW UP NEEDED. THANK YOU. Addendum: 12/23/18 at [address] Amended: Links added.
[2018-12-23] MEDS ORDERED: LEVO500T2 PO (15:55)
[2018-12-23] MEDS ORDERED: IBUP-2070 PO (15:56)
[2018-12-23 16:00] VITALS: BP 112/66
== END 2018-12-23 18:00 | disposition home or self-care (01) | DRG 661 ==
LOC: EDH 18:26 → EDHIP 20:26 → 3BH 20:49
PROVIDERS: ADMIT Family Medicine; ATTEND Family Medicine
PROC: 0T778DZ Dilation of Left Ureter with Intraluminal Device, Via Natural or Artificial Opening Endoscopic (ICD-10-PCS; principal; 2018-12-22 19:15)
PROC: BT1F1ZZ Fluoroscopy of Left Kidney, Ureter and Bladder using Low Osmolar Contrast (ICD-10-PCS; 2018-12-22 19:15)
DX: N13.6 Pyonephrosis (principal); N17.9 Acute kidney failure, unspecified; E87.6 Hypokalemia; F17.210 Nicotine dependence, cigarettes, uncomplicated; Z80.0 Family history of malignant neoplasm of digestive organs; Z83.3 Family history of diabetes mellitus; Z82.5 Family history of asthma and other chronic lower respiratory diseases; Z87.442 Personal history of urinary calculi; Z88.5 Allergy status to narcotic agent; Z88.8 Allergy status to other drugs, medicaments and biological substances
CPT/HCPCS: 36415; 74176; 74430; 76770; 80048; 80053; 80076; 81001; 83690; 83735; 85025; 87088; C1758; C1769; C2617; G0378; J0330; J0696; J1100; J1170; J1450; J1956; J2001; J2175; J2250; J2405; J2704; J2710; J3010; J3490; J7030; Q9967

== ENCOUNTER 2021-01-08 09:02 | Observation (INO) | payer OTHER, MEDICARE ==
[~2021-01-08] VITALS: Ht 167.6 cm; Wt 81.6 kg
[~2021-01-08 09:02] MED LIST changes: +FLUO20CA36 PO; +MIRT-120 PO; -SULF1TAB3 PO; +TAMS-1 PO
[2021-01-08] MEDS ORDERED: ONDANSETRON 4MG INJ IVP SCH (10:00)
[2021-01-08] MEDS ORDERED: MORPHINE 4 MG SYG IV SCH ×2 (10:00→14:00)
[2021-01-08 10:25] LABS: BASOPHILS % (AUTO) 0.2 % (0.0-5.0); EOSINOPHILS % (AUTO) 0.1 % (0.0-8.0); HEMATOCRIT 51.5 % (42-54); LYMPHOCYTES % (AUTO) 5.2 % (21.0-51.0); MEAN CORPUSCULAR HEMOGLOBIN 31.2 pg (27.0-33.0); MEAN CORPUSCULAR HGB CONC 33.4 g/dL (32.0-36.0); MEAN CORPUSCULAR VOLUME 93.5 fL (79-99); MONOCYTES % (AUTO) 5.3 % (3.0-13.0); NEUTROPHILS % (AUTO) 88.6 % (40.0-77.0); PLATELET COUNT (AUTO) 256 K/uL (130-400); RED BLOOD CELL COUNT(AUTO) 5.51 MIL/uL (4.50-6.20); RED CELL DISTRIBUTION WIDTH 13.8 % (11.0-15.5); WHITE BLOOD COUNT (AUTO) 20.7 K/uL (4.8-10.8)
[2021-01-08 10:34] LABS: APPEARANCE,URINE CLOUDY (CLEAR); BILIRUBIN,URINE NEGATIVE (NEGATIVE); COLOR,URINE YELLOW (YELLOW); GLUCOSE, URINE (UA) NEGATIVE (NEGATIVE); KETONES,URINE 5 mg/dL (NEGATIVE); LEUKOCYTE ESTERASE ,URINE LARGE (NEGATIVE); NITRATE,URINE NEGATIVE (NEGATIVE); OCCULT BLOOD,URINE LARGE (NEGATIVE); PROTEIN,URINE 30 mg/dL (NEGATIVE); UROBILINOGEN,URINE 0.2 mg/dL (0.2-1.0)
[2021-01-08 10:35] LABS: CREATININE 2.2 mg/dL (0.5-1.5); POTASSIUM 3.4 mmol/L (3.5-5.1)
[2021-01-08 10:40] LABS: ALBUMIN 3.6 g/dL (3.5-5.0); BILIRUBIN,TOTAL 0.6 mg/dL (0.2-1.0); TOTAL PROTEIN, SERUM 7.7 g/dL (6.0-8.3)
[2021-01-08] MEDS ORDERED: 0.9%NACL 50ML 50 ML IV ONE (10:53)
[2021-01-08] MEDS ORDERED: CEFTRIAXONE 2GM VIAL ONE (10:53)
[2021-01-08] MEDS ORDERED: CEFTRIAXONE 2GM VIAL IVP SCH (11:00)
[2021-01-08 12:07] LABS: BACTERIA,URINE Moderate /HPF (None Seen); SQUAMOUS EPITHELIAL CELL,UR None Seen /HPF (0-2)
[2021-01-08] MEDS ORDERED: ONDANSETRON 4MG INJ IV PRN (13:30)
[2021-01-08] MEDS ORDERED: ACETAMINOPHEN 325 MG TAB PO PRN ×2 (13:30)
[2021-01-08] MEDS ORDERED: 0.9%NACL 100ML 100 ML ONE (14:04)
[2021-01-08] MEDS: MEROPENEM 500 MG VIAL IV SCH ×2 (14:16→20:42)
[2021-01-08] MEDS: 0.9%NACL 1000ML 1,000 ML IV SCH ×2 (14:16→20:43)
[2021-01-08] MEDS: MORPHINE 2 MG SYG IV PRN ×2 (14:20→22:50)
[2021-01-08 17:07] VITALS: BP 145/83
[2021-01-08 19:57] VITALS: BP 126/77
[2021-01-08] MEDS ORDERED: FAMOTIDINE 20MG VIAL IV SCH (21:00)
[2021-01-08 23:58] VITALS: BP 127/76
[2021-01-09 03:48] VITALS: BP 134/80
[2021-01-09 03:52] LABS: BASOPHILS % (AUTO) 0.5 % (0.0-5.0); EOSINOPHILS % (AUTO) 0.4 % (0.0-8.0); HEMATOCRIT 49.1 % (42-54); LYMPHOCYTES % (AUTO) 7.1 % (21.0-51.0); MEAN CORPUSCULAR HEMOGLOBIN 31.2 pg (27.0-33.0); MEAN CORPUSCULAR VOLUME 94.6 fL (79-99); MONOCYTES % (AUTO) 7.4 % (3.0-13.0); NEUTROPHILS % (AUTO) 84.2 % (40.0-77.0); PLATELET COUNT (AUTO) 221 K/uL (130-400); RED BLOOD CELL COUNT(AUTO) 5.19 MIL/uL (4.50-6.20); RED CELL DISTRIBUTION WIDTH 13.7 % (11.0-15.5); WHITE BLOOD COUNT (AUTO) 15.5 K/uL (4.8-10.8)
[2021-01-09 04:22] LABS: BILIRUBIN,TOTAL 0.7 mg/dL (0.2-1.0); CREATININE 1.9 mg/dL (0.5-1.5); POTASSIUM 3.6 mmol/L (3.5-5.1); TOTAL PROTEIN, SERUM 6.9 g/dL (6.0-8.3)
[2021-01-09] MEDS: MEROPENEM 500 MG VIAL IV SCH ×2 (05:34→14:18)
[2021-01-09] MEDS: 0.9%NACL 1000ML 1,000 ML IV SCH ×2 (05:34→14:19)
[2021-01-09] MEDS: MORPHINE 2 MG SYG IV PRN ×2 (05:46→10:50)
[2021-01-09 08:24] VITALS: BP 105/69
[2021-01-09 11:29] VITALS: BP 133/78
[2021-01-09] MEDS ORDERED: CEPH500B PO (13:10)
== END 2021-01-09 16:25 | disposition home or self-care (01) ==
LOC: EDH 09:02 → INTOOBSV 13:15 → EDHIP 13:15 → 3BH 16:37
PROVIDERS: ADMIT Internal Medicine; ATTEND Internal Medicine
DX: N39.0 Urinary tract infection, site not specified (principal); N20.0 Calculus of kidney; N17.9 Acute kidney failure, unspecified; N18.9 Chronic kidney disease, unspecified; N12 Tubulo-interstitial nephritis, not specified as acute or chronic; N20.1 Calculus of ureter; N13.30 Unspecified hydronephrosis; F32.A Depression, unspecified; F17.210 Nicotine dependence, cigarettes, uncomplicated; R11.2 Nausea with vomiting, unspecified; Z87.442 Personal history of urinary calculi; Z93.3 Colostomy status; Z79.899 Other long term (current) drug therapy; Z98.890 Other specified postprocedural states
CPT/HCPCS: 36415 ×2; 74176; 80053 ×2; 81001; 83605; 84145; 85025 ×2; 87088; 96361 ×2; 96374; 96375; 96376 ×2; 99284; G0378 ×3; J0696; J2185 ×3; J2405 ×2; J3490; J7030

== ENCOUNTER 2021-06-23 11:56 | Emergency (ER) | payer OTHER, MEDICARE ==
[~2021-06-23] VITALS: Ht 167.6 cm; Wt 81.6 kg
[~2021-06-23 11:56] MED LIST changes: +CEPH500B PO
[2021-06-23] MEDS ORDERED: 0.9%NACL 1000ML 1,000 ML IV SCH (12:30)
[2021-06-23] MEDS ORDERED: KETOROLAC 30MG VIAL (30MG/ML) IVP SCH (12:30)
[2021-06-23] MEDS ORDERED: ONDANSETRON 4MG INJ IVP SCH (12:30)
[2021-06-23 12:38] LABS: BASOPHILS % (AUTO) 0.6 % (0.0-5.0); EOSINOPHILS % (AUTO) 0.9 % (0.0-8.0); LYMPHOCYTES % (AUTO) 14.5 % (21.0-51.0); MEAN CORPUSCULAR HEMOGLOBIN 31.7 pg (27.0-33.0); MEAN CORPUSCULAR HGB CONC 33.9 g/dL (32.0-36.0); MEAN CORPUSCULAR VOLUME 93.6 fL (79-99); MONOCYTES % (AUTO) 5.4 % (3.0-13.0); NEUTROPHILS % (AUTO) 78.2 % (40.0-77.0); PLATELET COUNT (AUTO) 246 K/uL (130-400); RED BLOOD CELL COUNT(AUTO) 5.45 MIL/uL (4.50-6.20); RED CELL DISTRIBUTION WIDTH 13.9 % (11.0-15.5); WHITE BLOOD COUNT (AUTO) 11.7 K/uL (4.8-10.8)
[2021-06-23 12:50] LABS: CREATININE 1.9 mg/dL (0.5-1.5); POTASSIUM 3.7 mmol/L (3.5-5.1)
[2021-06-23 12:54] LABS: ALBUMIN 3.5 g/dL (3.5-5.0); BILIRUBIN,TOTAL 0.5 mg/dL (0.2-1.0); TOTAL PROTEIN, SERUM 7.5 g/dL (6.0-8.3)
[2021-06-23] MEDS ORDERED: CEPH500B PO (13:43)
[2021-06-23] MEDS ORDERED: KETO10 PO (13:43)
[2021-06-23] MEDS ORDERED: ACETAMINOPHEN 500 MG TABLET ONE (13:55)
[2021-06-23] MEDS ORDERED: CEFTRIAXONE 1G VIAL ONE (13:55)
[2021-06-23 13:59] LABS: APPEARANCE,URINE Turbid (CLEAR); BILIRUBIN,URINE Negative (NEGATIVE); COLOR,URINE Yellow (YELLOW); GLUCOSE, URINE (UA) Negative (NEGATIVE); KETONES,URINE Negative (NEGATIVE); LEUKOCYTE ESTERASE ,URINE Large (NEGATIVE); NITRATE,URINE Negative (NEGATIVE); OCCULT BLOOD,URINE Large (NEGATIVE); PROTEIN,URINE 300 mg/dL (NEGATIVE); UROBILINOGEN,URINE 0.2 mg/dL (0.2-1.0)
[2021-06-23] MEDS ORDERED: CEFTRIAXONE 1G VIAL IVP ONE ×2 (14:00→14:30)
[2021-06-23] MEDS ORDERED: ACETAMINOPHEN 500 MG TABLET PO ONE (14:00)
[2021-06-23 14:42] LABS: BACTERIA,URINE Few /HPF (None Seen); MUCUS,URINE Few LPF (None Seen); SQUAMOUS EPITHELIAL CELL,UR Few /HPF (0-2); WBC,URINE 51-100 /HPF (0-1)
[2021-06-23 15:10] VITALS: BP 134/81
== END 2021-06-23 15:12 | disposition home or self-care (01) ==
LOC: EDH 11:56
DX: N13.2 Hydronephrosis with renal and ureteral calculous obstruction (principal); N18.9 Chronic kidney disease, unspecified; R11.2 Nausea with vomiting, unspecified; Z88.5 Allergy status to narcotic agent; F17.200 Nicotine dependence, unspecified, uncomplicated; Z79.1 Long term (current) use of non-steroidal anti-inflammatories (NSAID); Z79.899 Other long term (current) drug therapy
CPT/HCPCS: 36415; 74176; 80053; 81001; 83690; 84484; 85025; 87088; 96361; 96374; 96375; 99284; J0696; J1885; J2405; J7030

== ENCOUNTER → 2024-06-09 | Outpatient (CLI) | payer MEDICARE ==
[~2024-06-09] MED LIST changes: +FLUO-418 PO; -FLUO20CA36 PO; +IOHEXOL-350 75 ML VIAL IV ONE; +KETO10 PO; -MIRT-120 PO; +MIRT-146 PO
--- NOTE | 2024-06-09 08:40 | HMCIMG ---
CT ABDOMEN/PELVIS W/CONTRAST HISTORY: No additional history given. COMPARISON: None TECHNIQUE: Multiple sequential axial images of the abdomen and pelvis were obtained from the dome of the diaphragm through symphysis pubis. Patient was not given contrast through intravenous route. Oral contrast was not given. FINDINGS: No pleural effusion is seen bilaterally. There is no evidence of parenchymal disease or pulmonary nodule of the visualized lower lungs. Degenerative changes of the thoracolumbar spine are present. The heart is not enlarged. The liver, spleen, adrenal glands and pancreas are unremarkable. There are bilateral hydronephrosis worse on the left. There is left renal enlargement with extensive cortical scarring with left worse than right. There are bilateral renal calculi with the largest on the left measuring 2 cm and on the right measuring 16 mm. These were present on previous study. There is left hydroureter with 11 mm renal stone in the left distal ureter also seen on previous study. Fecal material is seen in the colon. There are normal size retroperitoneal and mesenteric lymph nodes. No ascites is seen. Atherosclerotic changes are present. There is right scrotal hernia with fat content. There is left ventral hernia with fat content unchanged. Pelvic sidewalls are symmetric bilaterally. Bladder is poorly distended with bladder wall thickening measuring 5 mm in thickness may be related to cystitis. Urinalysis correlation may be helpful. IMPRESSION: 1. Bilateral hydronephrosis and hydroureter worse on the left. There is obstructive stone on the left in the left distal ureter region measuring 11.3 mm. If there is clinical suspicion for xanthogranulomatous pyelonephritis or cystitis, urinalysis correlation with helpful. CT was performed with one or more following dose reduction techniques: automated exposure control, adjustment of the mA and kv according to patient's size, or use of a iterative reconstruction technique.
== END | disposition home or self-care (01) ==
LOC: RAH 07:31
PROVIDERS: ATTEND Internal Medicine Gastroenterology
DX: N13.2 Hydronephrosis with renal and ureteral calculous obstruction (principal); K43.9 Ventral hernia without obstruction or gangrene; K40.90 Unilateral inguinal hernia, without obstruction or gangrene, not specified as recurrent; N28.81 Hypertrophy of kidney; K43.2 Incisional hernia without obstruction or gangrene; M47.815 Spondylosis without myelopathy or radiculopathy, thoracolumbar region; N32.89 Other specified disorders of bladder; I70.0 Atherosclerosis of aorta
CPT/HCPCS: 74177; Q9967